=== PATIENT | male | born 1965 | race Caucasian/White ===

== ENCOUNTER → 2017-06-20 | Outpatient (CLI) | payer MEDICARE ==
[~2017-06-20] MED LIST: ALBU18HF INH; AMIT100T PO; BECL8.7A7 INH; CHOL100011 PO; DICL100G19 OP; DICL50TA2 PO; FOLI-17 PO; HYDR200T PO; LINA145C PO; LISI5TAB7 PO; LORA10TA62 PO; METH2.5T PO; PANT40TA3 PO; PIND5TAB PO; POLY17PO5 PO; PRED10TA14 PO; PREG100C PO; PREG300C PO
== END | disposition home or self-care (01) ==
LOC: CFH 07:00
PROVIDERS: ATTEND Internal Medicine
DX: K76.89 Other specified diseases of liver (principal); F42.9 Obsessive-compulsive disorder, unspecified; G47.33 Obstructive sleep apnea (adult) (pediatric); I10 Essential (primary) hypertension; E78.1 Pure hyperglyceridemia; M32.19 Other organ or system involvement in systemic lupus erythematosus; R13.10 Dysphagia, unspecified; M54.9 Dorsalgia, unspecified; K21.9 Gastro-esophageal reflux disease without esophagitis; I34.8 Other nonrheumatic mitral valve disorders; R09.1 Pleurisy; F43.20 Adjustment disorder, unspecified; G56.00 Carpal tunnel syndrome, unspecified upper limb; J45.998 Other asthma; G47.31 Primary central sleep apnea; R74.0 Nonspecific elevation of levels of transaminase and lactic acid dehydrogenase [LDH]; M48.02 Spinal stenosis, cervical region; R79.89 Other specified abnormal findings of blood chemistry; Z90.49 Acquired absence of other specified parts of digestive tract
CPT/HCPCS: 76700

== ENCOUNTER → 2017-07-19 | Outpatient (CLI) | payer MEDICARE ==
[~2017-07-19] MED LIST changes: +FLUT100B PO; +HYDR-3245 PO; -HYDR200T PO; +HYDR200T72 PO; +OMEP40CA6 PO
== END | disposition home or self-care (01) ==
LOC: CVU 06:37
PROVIDERS: ATTEND Internal Medicine Cardiovascular Disease
DX: Z01.818 Encounter for other preprocedural examination (principal); I10 Essential (primary) hypertension; I42.8 Other cardiomyopathies; F42.9 Obsessive-compulsive disorder, unspecified; G47.33 Obstructive sleep apnea (adult) (pediatric); E78.1 Pure hyperglyceridemia; M32.10 Systemic lupus erythematosus, organ or system involvement unspecified; M54.9 Dorsalgia, unspecified; K21.9 Gastro-esophageal reflux disease without esophagitis; I34.8 Other nonrheumatic mitral valve disorders; R09.1 Pleurisy; F43.20 Adjustment disorder, unspecified; G56.00 Carpal tunnel syndrome, unspecified upper limb; J45.998 Other asthma; G47.31 Primary central sleep apnea; R74.0 Nonspecific elevation of levels of transaminase and lactic acid dehydrogenase [LDH]; M48.02 Spinal stenosis, cervical region
CPT/HCPCS: 93306

== ENCOUNTER 2017-07-20 09:55 | Observation (INO) | payer MEDICARE ==
[~2017-07-20] VITALS: Ht 170.2 cm; Wt 95.4 kg
[~2017-07-20 09:55] MED LIST changes: -FLUT100B PO; -HYDR-3245 PO; -OMEP40CA6 PO
[2017-07-20] MEDS ORDERED: LACTATED RINGERS 1,000 ML IV SCH (10:35)
[2017-07-20 11:11] VITALS: BP 149/100
[2017-07-20] MEDS ORDERED: HYDR-3245 PO (11:28)
[2017-07-20] MEDS ORDERED: OMEP40CA6 PO (11:28)
[2017-07-20] MEDS ORDERED: FLUT100B PO (11:30)
[2017-07-20] MEDS ORDERED: BACITRACIN 50,000 UNIT ONE (12:01)
[2017-07-20] MEDS ORDERED: EPINEPHRINE 1 MG/ML, 1ML ONE (12:01)
[2017-07-20] MEDS ORDERED: THROMBIN 5,000 UNIT VIAL TP ONE (12:01)
[2017-07-20] MEDS ORDERED: BUPIVACAINE/PF 0.5% ONE (12:01)
[2017-07-20] MEDS ORDERED: FENTANYL PF 250 MCG/5ML ONE (13:07)
[2017-07-20] MEDS ORDERED: MIDAZOLAM 1 MG/ML, 2ML ONE (13:07)
[2017-07-20] MEDS ORDERED: PROPOFOL 50 ML ONE ×2 (13:08→15:04)
[2017-07-20] MEDS ORDERED: HYDROcodone/APAP 10/325 MG TABLET PO PRN (13:30)
[2017-07-20] MEDS ORDERED: SENNA/DOCUSATE TABLET PO PRN (13:30)
[2017-07-20] MEDS ORDERED: PHARMACY MAY ADJ FOR RENAL FX MC PRN (13:30)
[2017-07-20] MEDS ORDERED: ONDANSETRON 2MG/ML, 2ML IVPush PRN ×2 (13:30→14:30)
[2017-07-20] MEDS ORDERED: BISACODYL 10 MG SUPP PR PRN (13:30)
[2017-07-20] MEDS ORDERED: morphine SULFATE 10 MG/ML, 1ML IVPush PRN (13:30)
[2017-07-20] MEDS ORDERED: MAGNESIUM HYDROXIDE 8%, 30ML UDC PO PRN (13:30)
[2017-07-20] MEDS ORDERED: CYCLOBENZAPRINE 10 MG TABLET PO PRN (13:30)
[2017-07-20] MEDS ORDERED: DIPHENHYDRAMINE 50 MG/ML, 1ML IVPush PRN (13:30)
[2017-07-20] MEDS ORDERED: PROMETHAZINE 25 MG/ML, 1ML IM PRN (13:30)
[2017-07-20] MEDS ORDERED: ONDANSETRON 2MG/ML, 2ML ONE (13:32)
[2017-07-20] MEDS ORDERED: ROCURONIUM 10 MG/ML,10ML ONE (13:32)
[2017-07-20] MEDS ORDERED: SUCCINYLCHOLINE 20 MG/ML, 10ML ONE (13:32)
[2017-07-20] MEDS ORDERED: DEXAMETHASONE 4 MG/ML, 5ML ONE (13:32)
[2017-07-20] MEDS ORDERED: CEFAZOLIN 1,000 MG ONE (13:32)
[2017-07-20] MEDS ORDERED: LABETALOL 5MG/ML, 20ML ONE ×2 (13:32→18:46)
[2017-07-20] MEDS ORDERED: BUPIVACAINE/PF-EPI 0.5% 1:200K IM ONE (14:13)
[2017-07-20] MEDS ORDERED: ACETAMINOPHEN 325 MG TABLET PO PRN (14:30)
[2017-07-20] MEDS ORDERED: PROMETHAZINE 12.5 MG SUPP PR PRN (14:30)
[2017-07-20] MEDS ORDERED: MEPERIDINE/PF 25MG/0.5ML IVPush PRN (14:30)
[2017-07-20] MEDS ORDERED: DIAZEPAM 5 MG/ML, 2ML IVPush PRN (14:30)
[2017-07-20] MEDS ORDERED: LABETALOL 5MG/ML, 20ML IV PRN (14:30)
[2017-07-20] MEDS ORDERED: OXYcodone 5 MG/5 ML ORAL.SOL UDC PO PRN (14:30)
[2017-07-20] MEDS ORDERED: hydrALAzine 20 MG/ML, 1ML IV PRN (14:30)
[2017-07-20] MEDS ORDERED: morphine SULFATE 10 MG/ML, 1ML IV PRN (14:30)
[2017-07-20] MEDS ORDERED: HYDROmorphone 1 MG/ML, 1ML IV PRN (14:30)
[2017-07-20] MEDS ORDERED: KETAMINE 10 MG/ML, 20ML ONE (14:52)
[2017-07-20] MEDS ORDERED: HYDROmorphone 2 MG/ML, 1ML ONE (15:21)
[2017-07-20] MEDS ORDERED: FENTANYL PF 100 MCG/2ML ONE (15:21)
[2017-07-20] MEDS ORDERED: MEPERIDINE/PF 50 MG/ML ONE (15:29)
[2017-07-20] MEDS: FENTANYL PF 100 MCG/2ML IV PRN ×2 (15:55→16:05)
[2017-07-20] MEDS ORDERED: hydrALAzine 20 MG/ML, 1ML ONE (16:25)
[2017-07-20 17:07] VITALS: BP 147/94
[2017-07-20] MEDS ORDERED: POLYETHYLENE GLYCOL 17 GM PACKET PO PRN (18:30)
[2017-07-20] MEDS: LABETALOL 5MG/ML 40ML VIAL IVPush SCH (19:29)
[2017-07-20] MEDS: HYDROcodone/APAP 5/325 TABLET PO PRN (19:29)
[2017-07-20] MEDS: NS + 20MEQ KCL 1,000 ML IV SCH (19:30)
[2017-07-20] MEDS: ALBUTEROL SULFATE 2.5 MG/3 ML HHN SCH (21:00)
[2017-07-20] MEDS: PINDOLOL 5 MG TABLET PO SCH (23:24)
[2017-07-21 00:23] VITALS: BP 120/78
[2017-07-21] MEDS: LABETALOL 5MG/ML 40ML VIAL IVPush SCH ×2 (02:00→09:44)
[2017-07-21] MEDS: LABETALOL 5MG/ML, 20ML IVPush PRN ×2 (03:04→03:10)
[2017-07-21] MEDS: NS + 20MEQ KCL 1,000 ML IV SCH (04:00)
[2017-07-21 04:03] VITALS: BP 136/70
[2017-07-21 06:01] LABS: BASOPHILS % (AUTO) 0 % (0-1); EOSINOPHILS % (AUTO) 0 % (1-7); LYMPHOCYTES # (AUTO) 0.95 x10^3/uL (1-3.4); LYMPHOCYTES % (AUTO) 9 % (22-44); MD NO; MEAN CORPUSCULAR HEMOGLOBIN 27.4 pg (27.5-34.5); MEAN CORPUSCULAR HGB CONC 33.5 g/dL (33.2-36.2); MEAN PLATELET VOLUME 8.6 fL (7.4-10.4); MONOCYTES # (AUTO) 0.36 x10^3/uL (0.2-0.8); MONOCYTES % (AUTO) 3 % (2-9); NEUTROPHILS # (AUTO) 9.81 x10^3/uL (1.8-6.8); NEUTROPHILS % (AUTO) 88 % (42-75); PLATELET COUNT 199 x10^3/uL (130-400); RED BLOOD COUNT 5.06 x10^6/uL (4.38-5.82); RED CELL DISTRIBUTION WIDTH 13.7 % (9.4-14.8)
[2017-07-21 06:03] LABS: CHLORIDE 109 mmol/L (98-107)
[2017-07-21 06:08] LABS: ALBUMIN 3.3 g/dL (3.4-5.0); ANION GAP 7 mmol/L (5-15); CALCIUM 8.4 mg/dL (8.5-10.1); CREATININE 1.01 mg/dL (0.7-1.3)
[2017-07-21 07:18] VITALS: BP 135/84
[2017-07-21] MEDS ORDERED: OMEPRAZOLE 20 MG CAPSULE.DR PO SCH (07:30)
[2017-07-21] MEDS: PINDOLOL 5 MG TABLET PO SCH (08:01)
[2017-07-21] MEDS: ALBUTEROL SULFATE 2.5 MG/3 ML HHN SCH (08:03)
[2017-07-21] MEDS: HYDROcodone/APAP 5/325 TABLET PO PRN (08:06)
[2017-07-21] MEDS ORDERED: LISINOPRIL 5 MG TABLET PO SCH (09:00)
== END 2017-07-21 09:50 | disposition home or self-care (01) ==
LOC: ORIP 09:55 → INTOOBSV 09:55 → 4NOR 16:57
PROVIDERS: ADMIT Orthopaedic Surgery; ATTEND Orthopaedic Surgery
DX: M47.812 Spondylosis without myelopathy or radiculopathy, cervical region (principal); M48.02 Spinal stenosis, cervical region; M06.9 Rheumatoid arthritis, unspecified; R55 Syncope and collapse; I25.10 Atherosclerotic heart disease of native coronary artery without angina pectoris; I11.0 Hypertensive heart disease with heart failure; I50.9 Heart failure, unspecified; J45.909 Unspecified asthma, uncomplicated; G43.909 Migraine, unspecified, not intractable, without status migrainosus; G62.9 Polyneuropathy, unspecified
CPT/HCPCS: 22859; 36415; 63081; 63082; 69990; 72040; 80048; 82040; 85025; 86850; 86900; 95938; 95941; 96374; 96376; 97163; C1713; C1776; G0378; G8978; G8979; G8980; J0171; J0330; J0690; J1100; J1170; J2175; J2250; J2405; J2704; J3010; J3480; J3490; J7120

== ENCOUNTER → 2018-05-30 | Outpatient (CLI) | payer MEDICARE ==
[~2018-05-30] MED LIST changes: +FLUT100B PO; +HYDR-3245 PO; +OMEP40CA6 PO
== END | disposition home or self-care (01) ==
LOC: CFH 09:14
PROVIDERS: ATTEND Orthopaedic Surgery
DX: M47.816 Spondylosis without myelopathy or radiculopathy, lumbar region (principal); M48.07 Spinal stenosis, lumbosacral region; Z90.49 Acquired absence of other specified parts of digestive tract
CPT/HCPCS: 72100

== ENCOUNTER 2018-06-05 13:10 | Emergency (ER) | payer MEDICARE ==
[~2018-06-05] VITALS: Ht 170.2 cm; Wt 106.2 kg
--- NOTE | 2018-06-05 13:31 | NUR ---
EKG COMPLETED IN TRIAGE.
[2018-06-05] MEDS ORDERED: KETOROLAC 30 MG/1 ML IM ONE (14:00)
[2018-06-05 14:02] LABS: BASOPHILS # (AUTO) 0.03 x10^3/uL (0-0.1); BASOPHILS % (AUTO) 0 % (0-1); EOSINOPHILS # (AUTO) 0.43 x10^3/uL (0-0.4); EOSINOPHILS % (AUTO) 6 % (1-7); LYMPHOCYTES # (AUTO) 2.22 x10^3/uL (1-3.4); LYMPHOCYTES % (AUTO) 30 % (22-44); MD NO; MEAN CORPUSCULAR HEMOGLOBIN 26.6 pg (27.5-34.5); MEAN CORPUSCULAR HGB CONC 32.8 g/dL (33.2-36.2); MEAN PLATELET VOLUME 8.4 fL (7.4-10.4); MONOCYTES # (AUTO) 0.71 x10^3/uL (0.2-0.8); MONOCYTES % (AUTO) 10 % (2-9); NEUTROPHILS # (AUTO) 4.11 x10^3/uL (1.8-6.8); NEUTROPHILS % (AUTO) 55 % (42-75); PLATELET COUNT 194 x10^3/uL (130-400); RED BLOOD COUNT 5.55 x10^6/uL (4.38-5.82); RED CELL DISTRIBUTION WIDTH 13.1 % (9.4-14.8)
[2018-06-05 14:11] LABS: ALBUMIN 3.7 g/dL (3.4-5.0); ANION GAP 6 mmol/L (5-15); CALCIUM 9.1 mg/dL (8.5-10.1); CHLORIDE 112 mmol/L (98-107)
[2018-06-05] MEDS ORDERED: KETOROLAC 30 MG/1 ML ONE (14:14)
[2018-06-05 14:15] LABS: TROPONIN I < 0.015 ng/mL (0.000-0.045)
--- NOTE | 2018-06-05 14:19 | NUR ---
PT MEDICATED PER ORDER. FAMILY IN ROOM.
[2018-06-05 14:58] VITALS: BP 133/92
== END 2018-06-05 15:10 | disposition home or self-care (01) ==
LOC: ED 15:00
DX: M54.6 Pain in thoracic spine (principal); M79.18 Myalgia, other site; Z90.49 Acquired absence of other specified parts of digestive tract; Z90.89 Acquired absence of other organs; Z95.0 Presence of cardiac pacemaker
CPT/HCPCS: 36415; 71046; 80048; 82040; 84484; 85025; 85379; 93005; 96372; 99284; J1885

== ENCOUNTER → 2018-07-08 | Outpatient (CLI) | payer MEDICARE | END | disposition home or self-care (01) | LOC: CFH 11:18 | PROVIDERS: ATTEND Orthopaedic Surgery | DX: M47.812 Spondylosis without myelopathy or radiculopathy, cervical region (principal); M19.012 Primary osteoarthritis, left shoulder; M48.02 Spinal stenosis, cervical region; M43.22 Fusion of spine, cervical region | CPT/HCPCS: 72141 ==

== ENCOUNTER 2018-12-10 08:55 | Outpatient (CLI) | payer MEDICARE | END 2018-12-10 23:59 | disposition home or self-care (01) | LOC: CFH 08:55 | PROVIDERS: ATTEND Nurse Practitioner Primary Care | DX: M47.817 Spondylosis without myelopathy or radiculopathy, lumbosacral region (principal); I34.8 Other nonrheumatic mitral valve disorders; I10 Essential (primary) hypertension; E78.1 Pure hyperglyceridemia; K21.9 Gastro-esophageal reflux disease without esophagitis; J45.998 Other asthma; F43.20 Adjustment disorder, unspecified; F42.8 Other obsessive-compulsive disorder; G56.00 Carpal tunnel syndrome, unspecified upper limb; G47.31 Primary central sleep apnea; G47.33 Obstructive sleep apnea (adult) (pediatric); M32.10 Systemic lupus erythematosus, organ or system involvement unspecified; M48.02 Spinal stenosis, cervical region | CPT/HCPCS: 72110 ==

== ENCOUNTER 2020-01-20 11:06 | Emergency (ER) | payer MEDICARE ==
[~2020-01-20] VITALS: Ht 170.2 cm; Wt 105.5 kg
[~2020-01-20 11:06] MED LIST changes: +OMEP40CA42 PO; -OMEP40CA6 PO
[2020-01-20 12:16] LABS: BASOPHILS # (AUTO) 0.02 x10^3/uL (0-0.1); BASOPHILS % (AUTO) 0 % (0-1); EOSINOPHILS # (AUTO) 0.01 x10^3/uL (0-0.4); EOSINOPHILS % (AUTO) 0 % (1-7); LYMPHOCYTES # (AUTO) 0.48 x10^3/uL (1-3.4); LYMPHOCYTES % (AUTO) 3 % (22-44); MD NO; MEAN CORPUSCULAR HEMOGLOBIN 27.1 pg (27.5-34.5); MEAN CORPUSCULAR HGB CONC 33.1 g/dL (33.2-36.2); MEAN CORPUSCULAR VOLUME 81.9 fL (81-97); MEAN PLATELET VOLUME 8.2 fL (7.4-10.4); MONOCYTES # (AUTO) 0.76 x10^3/uL (0.2-0.8); MONOCYTES % (AUTO) 5 % (2-9); NEUTROPHILS # (AUTO) 13.02 x10^3/uL (1.8-6.8); NEUTROPHILS % (AUTO) 91 % (42-75); PLATELET COUNT 170 x10^3/uL (130-400); RED BLOOD COUNT 5.54 x10^6/uL (4.38-5.82); RED CELL DISTRIBUTION WIDTH 13.8 % (9.4-14.8)
[2020-01-20 12:45] LABS: ALBUMIN 3.8 g/dL (3.4-5.0); ANION GAP 10 mmol/L (5-15); CALCIUM 9.2 mg/dL (8.5-10.1); CHLORIDE 108 mmol/L (98-107)
[2020-01-20 12:48] LABS: MICROSCOPIC INDICATED
[2020-01-20 13:11] LABS: ALANINE AMINOTRANSFERASE 85 U/L (12-78); ALKALINE PHOSPHATASE 74 U/L (45-117); BILIRUBIN,TOTAL 0.4 mg/dL (0.2-1.0); CREATININE 1.33 mg/dL (0.7-1.3); TOTAL PROTEIN 7.9 g/dL (6.4-8.2)
[2020-01-20] MEDS ORDERED: OMNIPAQUE 350 MG/ML, 100ML BOTTLE ONE (13:30)
--- NOTE | 2020-01-20 13:33 | NUR ---
PT RETURNED FROM CT
[2020-01-20] MEDS ORDERED: SODIUM CHLORIDE 0.9% 1,000ML IVBOLUS ONE (14:00)
[2020-01-20 14:40] VITALS: BP 93/57
--- NOTE | 2020-01-20 14:43 | NUR ---
PER MD NO IV ANTIBIOTICS, OK TO DC HOME AFTER IVF AND WITH ABX RX.
[2020-01-21] MEDS ORDERED: AMLO-150 PO (12:24)
[2020-01-21] MEDS ORDERED: CARV12.5 PO (12:24)
[2020-01-21] MEDS ORDERED: CARV6.25 PO (20:54)
[2020-01-21] MEDS ORDERED: HYDR200T72 PO (20:54)
== END 2020-01-20 16:01 | disposition home or self-care (01) ==
LOC: ED 11:40
DX: B34.9 Viral infection, unspecified (principal); R50.9 Fever, unspecified; Z20.828 Contact with and (suspected) exposure to other viral communicable diseases; R06.00 Dyspnea, unspecified; I10 Essential (primary) hypertension; E11.9 Type 2 diabetes mellitus without complications; J45.909 Unspecified asthma, uncomplicated; Z90.49 Acquired absence of other specified parts of digestive tract; Z90.89 Acquired absence of other organs; Z95.0 Presence of cardiac pacemaker; Z85.118 Personal history of other malignant neoplasm of bronchus and lung
CPT/HCPCS: 36415; 71045; 74177; 80053; 81001; 83605; 84145; 85025; 87040; 87086; 87147; 87635; 93005; 96360; 96361; 99285; J7030; Q9967; 87181

== ENCOUNTER 2020-03-13 14:17 | Emergency (ER) | payer MEDICARE ==
[~2020-03-13] VITALS: Ht 170.2 cm; Wt 107.7 kg
[~2020-03-13 14:17] MED LIST changes: +AMLO-150 PO; +CARV12.5 PO; +CARV6.25 PO
--- NOTE | 2020-03-13 14:44 | NUR ---
AMBULATORY TO ED 28 W/ STEADY GAIT
--- NOTE | 2020-03-13 15:29 | NUR ---
PT C/O COUGH X 4 DAYS. WORSENS W/ COLD AIR; USED INHALER W/OUT RELIEF. DENIES FEVER. SENSE OF SMELL & TASTE INTACT. PT ABLE TO SPEAK IN COMPLETE SENTENCES, RESP EVEN & UNLABORED.
[2020-03-13] MEDS ORDERED: HYDR200T5 PO (15:36)
[2020-03-13] MEDS ORDERED: AMLO-211 PO (15:36)
[2020-03-13] MEDS ORDERED: CARV12.52 PO (15:36)
[2020-03-13 15:39] VITALS: BP 139/100
== END 2020-03-13 15:53 | disposition home or self-care (01) ==
LOC: ED 14:49
DX: J45.909 Unspecified asthma, uncomplicated (principal); R06.02 Shortness of breath; E11.9 Type 2 diabetes mellitus without complications; I10 Essential (primary) hypertension; Z90.49 Acquired absence of other specified parts of digestive tract; Z90.89 Acquired absence of other organs; Z95.0 Presence of cardiac pacemaker; Z85.118 Personal history of other malignant neoplasm of bronchus and lung
CPT/HCPCS: 71045; 99283

== ENCOUNTER 2020-11-12 06:46 | Outpatient (CLI) | payer MEDICARE ==
[~2020-11-12 06:46] MED LIST changes: +AMLO-211 PO; +CARV12.52 PO; -FOLI-17 PO; +FOLI1TAB32 PO; -HYDR-3245 PO; +HYDR1TAB53 PO; +HYDR200T5 PO; +LORA-59 PO; -LORA10TA62 PO; -OMEP40CA42 PO; +OMEP40CA8 PO
== END 2020-11-12 23:59 | disposition home or self-care (01) ==
LOC: CFH 06:46
PROVIDERS: ATTEND Internal Medicine Cardiovascular Disease
DX: I42.9 Cardiomyopathy, unspecified (principal); I32 Pericarditis in diseases classified elsewhere
CPT/HCPCS: 93306